=== PATIENT | male | born 1995 | race Caucasian/White ===

== ENCOUNTER 2020-12-28 07:39 | Outpatient (REF) | payer BC, SELFPAY ==
[2020-12-28 10:13] LABS: MANUAL DIFF FLAG NO
[2020-12-28 10:19] LABS: Basophils Percent Auto 0.7 % (0-2); Eosinophils Absolute Auto 0.1 X10*3/uL (0.0-0.4); Eosinophils Percent Auto 1.7 % (0-4); Hematocrit 46.1 % (42-52); Hemoglobin 15.3 g/dl (14.0-18.0); Imm Gran Abs Auto 0.02 X10*3/uL (0.00-0.03); Imm Gran Pct Auto 0.3 % (0.0-0.4); Lymphocytes Absolute Auto 1.6 X10*3/uL (1.2-4.9); Lymphocytes Percent Auto 28.7 % (20-40); Mean Corpuscular HGB Conc 33.2 g/dl (31.0-36.0); Mean Corpuscular Volume 90.4 fL (80-98); Mean Platelet Volume 9.5 fL (9.4-12.4); Monocytes Absolute Auto 0.5 X10*3/uL (0.1-1.2); Monocytes Percent Auto 9.3 % (2-11); Neutrophils Absolute Auto 3.4 X10*3/uL (2.0-8.3); Neutrophils Percent Auto 59.3 % (45-73); Platelet Count 298 X10*3/uL (160-400); Red Cell Distribution Width 13.3 % (11.0-16.0); White Blood Count 5.7 X10*3/uL (4.8-10.8)
[2020-12-28 10:46] LABS: Alanine Aminotransferase 17 U/L (0-40); Albumin Level 4.7 g/dL (3.5-5.0); Alkaline Phosphatase 78 U/L (39-117); Anion Gap 14 (12-20); Aspartate Amino Transferase 22 U/L (5-37); Blood Urea Nitrogen 11 mg/dL (9-16); Calcium 9.4 mg/dL (8.4-10.2); Carbon Dioxide 26 mmol/L (22-29); Chloride 105 mmol/L (96-108); Cholesterol 173 mg/dL; Estimated Glomerular Filt Rate > 60; Glucose Fasting 85 mg/dL (60-99); HDL Cholesterol 53 mg/dL; LDL Cholesterol Calculated 100 mg/dl; Potassium 4.9 mmol/L (3.3-5.1); Sodium 140 mmol/L (135-145); Triglycerides 102 mg/dL
== END 2020-12-28 07:40 | disposition home or self-care (01) ==
LOC: HO.10HDL 07:39
PROVIDERS: PCP Internal Medicine Medical Oncology; Visit Provider Internal Medicine Medical Oncology
DX: E66.3 Overweight (principal)
CPT/HCPCS: 36415; 80053; 80061; 85025

== ENCOUNTER 2023-02-03 13:56 | Outpatient (REF) | payer BC, SELFPAY ==
--- NOTE | ~2023-02-03 | US_ITS ---
EXAMINATION: US SCROTUM CLINICAL INFORMATION: Testicular pain. COMPARISON: None available. TECHNIQUE: A sonogram of the scrotum was performed assessing diop-scale appearance and color Doppler flow. Spectral Doppler analysis of the arterial and venous flow were performed in the testes bilaterally. FINDINGS: RIGHT: Right testicle measures 4.0 x 1.9 x 2.7 cm, volume 10.7 mL. No focal testicular parenchymal lesions are visualized. Spectral Doppler analysis of the arterial and venous flow is normal in the right testis. The testicular echotexture is heterogeneous compared to the contralateral side. Right epididymal head is normal in size. No right hydrocele or varicocele is seen. Right epididymal Doppler flow is increased. LEFT: Left testicle measures 3.9 x 2.0 x 3.2 cm, volume 13.4 mL. No focal testicular parenchymal lesions are visualized. Spectral Doppler analysis of the arterial and venous flow is normal in the left testis. Left epididymal head is normal in size. Trace left hydrocele. Small left varicocele. Left epididymal Doppler flow is normal. US/US scrotum IMPRESSION: Heterogeneous right testicular echotexture and increased vascularity in the right epididymis. Findings are consistent with epididymoorchitis. Correlate clinically. Trace left varicocele and hydrocele.
== END 2023-02-03 13:57 | disposition home or self-care (01) ==
LOC: HO.HMGCX 13:56
PROVIDERS: PCP Internal Medicine Medical Oncology; Visit Provider Internal Medicine Medical Oncology
DX: N50.819 Testicular pain, unspecified (principal)
CPT/HCPCS: 76870

== ENCOUNTER 2024-01-22 15:20 | Outpatient (AMB) | payer BC, SELFPAY ==
--- NOTE | 2024-01-22 15:24 | A.OFFVIS_ITS ---
Vital Signs 01/22/24 15:25 Height 5 ft 7 in Weight 187 lb 6.287 oz BMI 29.3 BP 110/64 Blood Pressure Location Rt brachial Position Sitting Pulse 72 Pulse Oximetry (%) 98 Oxygen Delivery Method Room Air Intake Visit Reasons: sleep apnea Intake Note: Patient is here for new patient consultation on sleep apnea, patient c/o severe snoring, daytime sleepiness, waking up at night gasping for air. Patient stated hes never had a sleep study done Allergies No Known Allergies Allergy (Verified 01/22/24 15:59) Medication List - Last Reconciled 01/22/24 by Ramya Thakkar MD No Known Home Meds Do you need a note to return to daycare/school/sports/work: No HPI HPI sleep apnea: Details: Jd is 28 years old healthy looking gentleman, who is being seen for the 1st time , to be checked for sleep apnea. 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 Has had a partner for the last 6 months, who is telling him that he snores a lot at night. Before that for the last 10-15 years he is aware of excessive snoring. His parents have pointed that out to him. Whenever he has gone for camping the Cam partners have told him that he does not let anybody else sleep due to snoring. He does wake up once or twice per night with the air hunger. Then he goes back to sleep. He wakes up in the morning somewhat tired. He is moderately sleepy during the daytime. EPWORTH SLEEPINESS SCALE IS 12. THE STRIKING PIECE OF INFORMATION IS THAT WHEN HE IS DRIVING ON A LONG DISTANCE, HE HAS MOMENTS WHEN HE WANTS TO PULL HIS CAR TO THE SIDE BECAUSE OF SLEEPINESS. THIS HAPPENS MORE ON THE NIGHTS THAT HE TAKES A FEW DRINKS BEFORE SLEEPING, WHICH HE DOES ONLY ONCE OR TWICE A WEEK. HE IS NOT ON ANY ADDICTIVE MEDICATIONS HE IS NONSMOKER, USES MARIJUANA ONCE OR TWICE PER MONTH. [facility] Medical History (Updated 01/22/24 @ 16:11 by Ramya Thakkar MD) Retrognathia Somnolence, daytime Habitual snoring Social History Patient Tobacco Use Status: Never used Tobacco Review of Systems Const All systems reviewed & are unremarkable except as noted in HPI and below Reports snoring Eyes Reports no additional complaints ENT Reports no additional complaints Card Reports no additional complaints Resp Reports no additional complaints, Denies cough, Reports snoring and Denies wheezing GI Reports no additional complaints Reports no additional complaints Musc Reports no additional complaints Skin/Breast Reports system reviewed and no additional complaints, except as documented Neuro Reports no additional complaints Psych Reports no additional complaints Endo Reports no additional complaints Aller/Immun Denies wheezing Physical Exam Vital Signs: Last Vital Signs Pulse 72 01/22/24 15:25 BP 110/64 01/22/24 15:25 Pulse Ox 98 01/22/24 15:25 Oxygen Delivery Method Room Air 01/22/24 15:25 BMI result Body Mass Index 29.3 Const General: healthy appearing, comfortable, no acute distress, alert and awake Orientation/consciousness: patient oriented x3 HEENT Head: Yes normal to inspection General nose exam: No nasal polyps present and No nasal discharge present Face and sinus: Yes sinuses nontender Mouth: oropharynx abnormals (MODERATELY NARROW, MALLAMPATI SCALE 3) Throat: Yes posterior oropharynx normal and Yes other (RETROGANTHIA OF THE LOWER JAW) Eyes General: appearance normal, both eyes and all related structures Neck Neck: Yes normal visual inspection, Yes no lymphadenopathy, Yes trachea midline, Yes no JVD and Yes other (NECK SIZE 16-1/2 INCH) Thyroid: Thyroid normal Chest Chest palpation & inspection: normal inspection of the chest, normal palpation of entire chest wall and no tenderness Resp Effort & Inspection: normal respiratory effort Auscultation: clear to auscultation bilaterally, no rhonchi and no wheezes Cardio Palpation: normal PMI Rate: regular rate Rhythm: regular rhythm Heart sounds: no gallops and no murmurs Peripheral pulses: Peripheral pulses 2+ throughout GI Palpation (GI): Soft to palpation, nontender, No hepatosplenomegaly present and no masses Auscultation: normal bowel sounds Back/Spine/Pelvis Thoracic/Lumbar Spine: thoracic and lumbar spine normal to inspection Skin General skin exam: no rashes or lesions noted Neuro General: patient oriented x3 and no focal motor deficits Cranial nerves: Yes CN's II-XII intact bilaterally Extrem General: Yes normal to inspection, Yes no clubbing, cyanosis or edema and Yes no calf tenderness Psych Appearance: grossly normal and well kempt Speech and movement: Normal speech and movement present Assessment & Plan Assessment & Plan (1) Habitual snoring: Comment: HISTORY OF HABITUAL SNORING FOR MANY YEARS. WORSE IN THE LAST 2-3 YEARS. Code(s): R06.83 - Snoring Category: Medical Plan: TO BE CHECKED FOR SLEEP APNEA (2) Somnolence, daytime: Comment: HE DOES POOR SLEEP AT NIGHT, DOES HAVE MODERATE AMOUNT OF DAYTIME SLEEPINESS. ESS=12/24 ESPECIALLY FEELS SLEEPY WHEN DRIVING CAR ON HIGHWAY. 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 THIS MAY BE THE PRIMARY CAUSE OF HIS SNORING AND POSSIBLE SLEEP APNEA AT NIGHT. Code(s): M26.19 - Other specified anomalies of jaw-cranial base relationship Category: Medical Plan: PATIENT EDUCATED ABOUT THIS DEFECT, AND ITS RELATIONSHIP TO HEAVY SNORING AND SLEEP APNEA. PATIENT EXPLAINED ABOUT THE NEED TO DO HOME-BASED SLEEP STUDY TO SCREEN FOR POSSIBLE SLEEP APNEA. HE IS AGREEABLE, AND RATHER ANXIOUS TO UNDERGO THE STUDY. I HAVE PLACED ORDER FOR A HOME-BASED SLEEP STUDY. WILL CHECK HIM RIGHT AFTER THE SLEEP STUDY IS DONE. Orders: Orders RT home sleep study Today M26.19 - Other specified anomalies of jaw-cranial base relationship, R06.83 - Snoring, R40.0 - Somnolence Coding Level of Care Code New Pt Level 4 (70637) Diagnoses Habitual snoring R06.83 Somnolence, daytime R40.0 Retrognathia M26.19
[2024-01-22 15:25] VITALS: BP 110/64; PULSE 72; O2SAT 98; BMI 29.3
== END 2024-01-22 15:59 | disposition home or self-care (01) ==
PROVIDERS: PCP Internal Medicine Medical Oncology; Visit Provider Internal Medicine
DX: R06.83 Snoring (principal); R40.0 Somnolence; M26.19 Other specified anomalies of jaw-cranial base relationship
CPT/HCPCS: 99204

== ENCOUNTER → 2024-01-22 15:20 | Outpatient (BNVA) | payer BC, SELFPAY | PROVIDERS: PCP Internal Medicine Medical Oncology; Visit Provider Internal Medicine ==

== ENCOUNTER → 2024-03-07 13:46 | Outpatient (REF) | payer BC, SELFPAY | LOC: HO.SL 13:46 | PROVIDERS: PCP Internal Medicine Medical Oncology; Visit Provider Internal Medicine | DX: R06.83 Snoring (principal); M26.19 Other specified anomalies of jaw-cranial base relationship; R40.0 Somnolence | CPT/HCPCS: 95806 ==

== ENCOUNTER → 2024-03-07 13:55 | Outpatient (BNV) | payer BC, SELFPAY | PROVIDERS: PCP Internal Medicine Medical Oncology; Visit Provider Internal Medicine | DX: R06.83 Snoring (principal) | CPT/HCPCS: 95806 ==

== ENCOUNTER 2024-03-26 14:09 | Outpatient (AMB) | payer BC, SELFPAY ==
[2024-03-26 14:23] VITALS: BP 94/50; PULSE 85; O2SAT 96; BMI 30.4
--- NOTE | 2024-03-26 14:23 | MHC.OFFVIS ---
Vital Signs 03/26/24 14:23 Height 5 ft 7 in Weight 194 lb 0.108 oz BMI 30.4 BP 94/50 L Blood Pressure Location Lt brachial Position Sitting Pulse 85 Pulse Source Pulse Oximeter Pulse Oximetry (%) 96 Oxygen Delivery Method Room Air Intake Visit Reasons: Sleep apnea Intake Note: pt is here for new patient to go over sleep study. he snores, and daytime fatigue, worse close to bedtime if eating. 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 HE WAS INITIALLY SEEN BECAUSE OF COMPLAINED OF SNORING,, DAYTIME SLEEPINESS. HE WAS NOTED TO BE MODERATELY OBESE WITH A RELATIVELY ROUND FACE, AND WITH RETROGANTHIA OF THE LOWER JAW . HIS HOME-BASED SLEEP STUDY IS REVIEWED WITH HIM, HE DID SLEEP GOOD THAT NIGHT, DID NOT HAVE OBSTRUCTIVE SLEEP APNEA, BUT HE DID HAVE MODERATE AMOUNT OF SNORING. [facility] Medical History Retrognathia Somnolence, daytime Habitual snoring Social History Patient Tobacco Use Status: Never used Tobacco Review of Systems Const All systems reviewed & are unremarkable except as noted in HPI and below Reports snoring Eyes Reports no additional complaints ENT Reports no additional complaints Card Reports no additional complaints Resp Reports no additional complaints, Denies cough, Reports snoring and Denies wheezing GI Reports no additional complaints Reports no additional complaints Musc Reports no additional complaints Skin/Breast Reports system reviewed and no additional complaints, except as documented Neuro Reports no additional complaints Psych Reports no additional complaints Endo Reports no additional complaints Aller/Immun Denies wheezing Physical Exam Vital Signs: Last Vital Signs Pulse 85 03/26/24 14:23 BP 94/50 L 03/26/24 14:23 Pulse Ox 96 03/26/24 14:23 Oxygen Delivery Method Room Air 03/26/24 14:23 BMI result Body Mass Index 30.4 Const General: healthy appearing, comfortable, no acute distress, alert and awake Orientation/consciousness: patient oriented x3 HEENT Head: Yes normal to inspection General nose exam: No nasal polyps present and No nasal discharge present Face and sinus: Yes sinuses nontender Mouth: oropharynx abnormals (MODERATELY NARROW, MALLAMPATI SCALE 3) Throat: Yes posterior oropharynx normal and Yes other (RETROGANTHIA OF THE LOWER JAW) Eyes General: appearance normal, both eyes and all related structures Neck Neck: Yes normal visual inspection, Yes no lymphadenopathy, Yes trachea midline, Yes no JVD and Yes other (NECK SIZE 16-1/2 INCH) Thyroid: Thyroid normal Chest Chest palpation & inspection: normal inspection of the chest, normal palpation of entire chest wall and no tenderness Resp Effort & Inspection: normal respiratory effort Auscultation: clear to auscultation bilaterally, no rhonchi and no wheezes Cardio Palpation: normal PMI Rate: regular rate Rhythm: regular rhythm Heart sounds: no gallops and no murmurs Peripheral pulses: Peripheral pulses 2+ throughout GI Palpation (GI): Soft to palpation, nontender, No hepatosplenomegaly present and no masses Auscultation: normal bowel sounds Back/Spine/Pelvis Thoracic/Lumbar Spine: thoracic and lumbar spine normal to inspection Skin General skin exam: no rashes or lesions noted Neuro General: patient oriented x3 and no focal motor deficits Cranial nerves: Yes CN's II-XII intact bilaterally Extrem General: Yes normal to inspection, Yes no clubbing, cyanosis or edema and Yes no calf tenderness Psych Appearance: grossly normal and well kempt Speech and movement: Normal speech and movement present Results Reviewed Results Reviewed: HOME-BASED SLEEP STUDY SHOWS THAT HE HAD TOTAL SLEEP TIME AHI 0.7. SNORING FOR 35% OF THE SLEEP TIME. NO HYPOXEMIA. 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 THIS MAY BE THE PRIMARY CAUSE OF HIS SNORING AND POSSIBLE SLEEP APNEA AT NIGHT. Code(s): M26.19 - Other specified anomalies of jaw-cranial base relationship Category: Medical Plan: THIS IS NOT AMENABLE TO ANY TREATMENT. HE CAN DISCUSS WITH HIS DENTIST AND DENTIST MAY SUPPLY HIM WITH A MOUTH GUARD OR BRACE. (2) Habitual snoring: Comment: HISTORY OF HABITUAL SNORING FOR MANY YEARS. WORSE IN THE LAST 2-3 YEARS. HE HAD SNORING FOR 35% OF THE SLEEP TIME. Code(s): R06.83 - Snoring Category: Medical Plan: DISCUSSED ABOUT SNORING, IT IS PARTLY DUE TO RETROGANTHIA OF THE LOWER JAW, AND PARTLY DUE TO BEING OVERWEIGHT. HE IS INSTRUCTED TO HAVE A VISIT WITH THE DENTIST AND DISCUSS ABOUT . THIS FINDING HE IS INSTRUCTED TO LOSE ABOUT 10-15 LB OF WEIGHT. HE IS ALSO INSTRUCTED TO ALWAYS SLEEP IN LATERAL POSITION. (3) Somnolence, daytime: Comment: HE DOES POOR SLEEP AT NIGHT, DOES HAVE MODERATE AMOUNT OF DAYTIME SLEEPINESS. ESS=12/24 ESPECIALLY FEELS SLEEPY WHEN DRIVING CAR ON HIGHWAY. Code(s): R40.0 - Somnolence Category: Medical Plan: REASSURED THAT HE DOES NOT HAVE SLEEP APNEA. SLEEP HYGIENE IS EXPLAINED. SHOULD DO BODY CONDITIONING AND REGULAR EXERCISE DURING THE DAY Coding Level of Care Code Est Pt Level 3 (44657) Diagnoses Retrognathia M26.19 Habitual snoring R06.83 Somnolence, daytime R40.0
== END 2024-03-26 15:18 | disposition home or self-care (01) ==
PROVIDERS: PCP Internal Medicine Medical Oncology; Visit Provider Internal Medicine
DX: M26.19 Other specified anomalies of jaw-cranial base relationship (principal); R06.83 Snoring; R40.0 Somnolence
CPT/HCPCS: 99213